=== PATIENT | male | born 1970 | race Caucasian/White ===

== ENCOUNTER 2017-05-14 14:00 | Emergency (ER) | payer OTHER ==
[2017-05-14] MEDS ORDERED: MAGNESIUM SULFATE 1 GM/2 ML VIAL ONE (14:41)
[2017-05-14] MEDS ORDERED: THIAMINE HCL 200 MG/2 ML VIAL ONE (14:41)
[2017-05-14] MEDS ORDERED: NORMAL SALINE 1,000 ML IV ONE (14:42)
[2017-05-14] MEDS ORDERED: MULTIVITAMINS 10 ML VIAL IV ONE (14:42)
[2017-05-14 14:45] LABS: ALBUMIN 4.7 g/dL (3.5-5.0); ALKALINE PHOSPHATASE 107 U/L (38-126); ALT 214 U/L (21-72); AST 269 U/L (17-59); BILIRUBIN, DIRECT 1.1 mg/dL (0.0-0.4); BILIRUBIN, TOTAL 2.1 mg/dL (0.2-1.3); BLOOD UREA NITROGEN 8 mg/dL (9-20); CALCIUM 9.1 mg/dL (8.4-10.2); CHLORIDE 103 mmol/L (98-107); EST GLOMERULAR FILTRATION RATE > 60 mL/min; GLUCOSE 112 mg/dL (70-100); LIPASE 70 U/L (23-300); MAGNESIUM 1.9 mg/dL (1.6-2.3); POTASSIUM 3.8 mmol/L (3.5-5.1); SODIUM 147 mmol/L (137-145); TOTAL PROTEIN 8.7 g/dL (6.3-8.2)
[2017-05-14 15:04] LABS: HEMATOCRIT 48.3 % (42.0-54.0); HEMOGLOBIN 16.9 g/dL (14.0-18.0); RED BLOOD COUNT 4.82 X 10^6uL (4.20-6.10); WHITE BLOOD COUNT 3.5 X 10^3uL (3.9-10.7)
[2017-05-14 15:05] LABS: EOSINOPHILS 2.5 % (0.0-6.0); LYMPHOCYTES 33.1 % (20.0-40.0); MONOCYTES 13.6 % (2.0-10.0); NEUTROPHILS 50.1 % (54.0-75.0); PLATELET COUNT 90 X 10^3uL (130-440); RED CELL DISTRIBUTION WIDTH 12.3 % (11.5-14.5)
[2017-05-14 15:06] LABS: BASOPHILS 0.7 % (0.0-2.0); EOSINOPHILS# 0.1 X 10^3uL (0.0-0.4); LYMPHOCYTES# 1.2 X 10^3uL (0.8-3.8); MONOCYTES# 0.5 X 10^3uL (0.2-1.0); NEUTROPHILS# 1.8 X 10^3uL (2.6-6.7)
[2017-05-14 15:17] LABS: ETHYL ALCOHOL 489 mg/dL (<10)
[2017-05-14] MEDS ORDERED: LORazepam 0.5 MG TABLET ONE (16:30)
[2017-05-14] MEDS ORDERED: LORazepam 1 MG TABLET ONE (22:06)
--- NOTE | 2017-05-14 22:21 | ER NURSING DOCUMENTATION ---
Nurse's Notes [facility] Name:Moise Dang Age:46 yrs Sex:Male :1970 Arrival Date:05/14/2017 Time:14:00 Bed4 Private MD: Diagnosis:Alcohol Abuse;Alcoholic Hepatitis;Alcohol Intoxication, Dependence Acute Presentation: 05/14 14:05 Presenting complaint: Patient states: On the way to [place], here for hydration. cb Transition of care: Home. Notified ED Physician of patient's arrival and CC Dr. Dao notified. 14:05 Method Of Arrival: Private Vehicle cb 14:05 Acuity: IGOR 3 cb Triage Assessment: 14:53 General: Appears in no apparent distress, well groomed, Behavior is Intoxicated. Smells cb of alcohol. Pain: Complains of pain in left arm and left leg Pain currently is 8 out of 10 on a pain scale. EENT: No deficits noted. Neuro: Level of Consciousness is awake, alert, Oriented to person, patient states that he is in [place] . Cardiovascular: Pulses are 2+ in left radial artery. Respiratory: Airway is patent Trachea midline Respiratory effort is even, unlabored, Respiratory pattern is regular, symmetrical. GI: Parent/caregiver reports the patient having anorexia. : No deficits noted. Derm: Reports Bruising on L lower leg. Musculoskeletal: Reports pain in left arm and left leg chronic. Historical: - Allergies: No known drug Allergies; - Home Meds: 1. None - PSHx: HIP SURGERY; SHOULDER SURGERY; arm injury with surgery ; - Tetanus: < 10 years. - Ebola Screening: : Patient negative for fever greater than or equal to 101.5 degrees Fahrenheit, and additional compatible Ebola Virus Disease symptoms. Patient denies exposure to infectious person. Patient denies travel to an Ebola-affected area in the 21 days before illness onset. No symptoms or risks identified at this time. . - Immunization history: Flu Vaccine None. - Social history: Smoking status: Patient states was never smoker of tobacco. Patient/guardian denies using street drugs, marijuana. Screenin:58 Infectious Disease Risk None. Abuse screen: Denies threats or abuse. Denies injuries cb from another. Nutritional screening: No deficits noted. Suicide Risk Assessment: Unable to obtain due to condition. Vital Signs: 14:07 BP 126 / 96; Pulse 82; Resp 20; Temp 98.9(TE); Pulse Ox 93% on R/A; Weight 81.65 kg; cb Height 6 ft. 3 in. (190.50 cm); Pain 8/10; 14:35 Pulse Ox 93% ; cb 21:59 BP 130 / 84; Pulse 75; Resp 18; Pulse Ox 97% ; bw2 14:07 Body Mass Index 22.50 (81.65 kg, 190.50 cm) cb ED Course: 14:02 Patient arrived in ED. ds 14:05 Raya Bolanos, JOSEPH is Primary Nurse. cb 14:07 Triage completed. cb 14:09 Willie Dao MD is Attending Physician. cd 14:15 Inserted peripheral IV: 18 gauge in left antecubital area and blood collected. Missed cb attempts: 18 gauge X 1 in left antecubital area. 14:15 Labs drawn. (by ED staff). Sent per order to lab. Oxygen O2 via patient will not keep cb oxygen on. 14:59 Valuables Remains with patient Patient has correct armband on for positive cb identification. Placed in gown. Bed in low position. Call light in reach. Side rails up X 1. Adult w/ patient. Pulse ox on. NIBP on. 18:23 Labs drawn. By Lab Staff Sent per order to lab. cb 20:30 No apparent distress. Resting quietly. bw2 21:52 Attending Physician role handed off by Willie Dao MD tl1 21:52 Edson Rao MD is Attending Physician. tl1 Administered Medications: 14:15 Drug: Banana Bag - (NS 0.9% 1000 ml, folic acid 600 mcg, Thiamine 100 mg, Multivitamin cb 10 ml, Magnesium Sulfate 1 grams); Route: IV; Rate: calculated rate; Site: left antecubital; 15:10 Follow up: IV Status: Infusion continued; IV Intake: 1000ml cb 15:11 Drug: NS 0.9% 1000 ml; Route: IV; Rate: bolus; Site: left antecubital; cb 16:16 Follow up: IV Status: Infusion continued; IV Intake: 1000ml cb 16:16 Drug: NS 0.9% 1000 ml; Route: IV; Rate: bolus; Site: left antecubital; cb 17:13 Follow up: IV Status: Completed infusion; IV Intake: 1000ml cb 16:17 Drug: Ativan 0.5 mg; Route: PO; cb 17:14 Follow up: Response: Anxiety decreased cb 21:55 CANCELLED (Duplicate Order): Ativan 2 mg PO once bw2 21:58 Drug: Ativan 2 mg; Route: PO; 2 22:03 Follow up: Response: No adverse reaction bw2 Intake: 15:10 IV: 1000ml; Total: 1000ml. cb 16:16 IV: 1000ml; Total: 2000ml. cb 17:13 IV: 1000ml; Total: 3000ml. cb Outcome: 21:59 Discharged to [place] [id number] 21:59 Condition: good 21:59 Report given to [facility] 21:59 Discharge Assessment: Patient awake, alert and oriented x 3. No cognitive and/or functional deficits noted. Patient verbalized understanding of disposition instructions. 22:17 Discharge ordered by . tl1 22:20 Discharge instructions given to patient, ready mix truck driver, Instructed on discharge [facility] instructions, follow up and referral plans. Demonstrated understanding of instructions. 22:20 Patient left the ED. 2 Signatures: Raya Bolanos RN RN cb ot, Emmie, Reg Reg Willie Nails MD MD cd Leigh, Tom, MD MD tl1 Katherine Palmer bw2
--- NOTE | 2017-05-14 22:21 | ER PHYSICIAN DOCUMENTATION ---
Physician Documentation [facility] Name:Moise Dang Age:46 yrs Sex:Male :1970 Arrival Date:05/14/2017 Time:14:00 Bed4 Private MD: Edson Allen Disposition: 05/14 22:15 Chart complete. tl1 Disposition: 05/14/17 22:17 Discharged to [facility]. Impression: Alcohol Abuse, Alcoholic Hepatitis, Alcohol Intoxication, Dependence Acute. - Condition is Good. - Discharge Instructions: ALCOHOL INTOXICATION. - Medical Reconciliation form form. - Follow up: Private Physician; When: 4- 6 days; Reason: Recheck today's complaints, Continuance of care. - Problem is an ongoing problem. - Symptoms have improved. - Notes: GO TO [place] NOW FOR INTAKE AND ALCOHOL DETOX AND REHAB. HPI: 19:20 This 46 yrs old Male presents to ER via Private Vehicle with complaints of tl1 ETOH Abuse. 19:20 The patient presents to the emergency department with a history of substance abuse, tl1 Type: vodka, This is a very pleasant 46 y.o man who by report, showed up at [facility] for detox, but was felt to be too intoxicated for intake at that time and was referred here for medical evaluation. He arrived at [address]. Please [address] Dao's note documenting his initial evaluation. His care was signed over to me at 1900, pending decrease of his alcohol level below 300, at which he will be appropriate for intake at [facility]. Labs are notable for leukopenia, thrombocytopenia, and elevated transaminases, c/w alcoholic hepatitis.. Historical: - Allergies: No known drug Allergies; - Home Meds: 1. None - PSHx: HIP SURGERY; SHOULDER SURGERY; arm injury with surgery ; - Tetanus: < 10 years. - Ebola Screening: : Patient negative for fever greater than or equal to 101.5 degrees Fahrenheit, and additional compatible Ebola Virus Disease symptoms. Patient denies exposure to infectious person. Patient denies travel to an Ebola-affected area in the 21 days before illness onset. No symptoms or risks identified at this time. . - Immunization history: Flu Vaccine None. - Social history: Smoking status: Patient states was never smoker of tobacco. Patient/guardian denies using street drugs, marijuana. ROS: 22:09 Psych: Positive for alcohol dependence, Negative for auditory hallucinations, visual tl1 hallucinations, homicidal ideation, suicidal ideation. 22:09 All other systems are negative. Exam: 22:09 Constitutional: This is a well developed, well nourished patient who is awake, alert, tl1 and in no acute distress. 22:09 Head/face: Exam is negative for acute changes. 22:09 Neck: ROM/movement: is normal, is supple. 22:09 Cardiovascular: Rate: normal. 22:09 Respiratory: Respirations: normal. 22:09 Psych: Behavior/mood is pleasant, cooperative, Affect is calm, Oriented to person, place, time, Patient has no thoughts/intents to harm self or others. Judgement / Insight is normal. Memory is normal. Delusions/hallucinations are not present. Vital Signs: 14:07 BP 126 / 96; Pulse 82; Resp 20; Temp 98.9(TE); Pulse Ox 93% on R/A; Weight 81.65 kg; cb Height 6 ft. 3 in. (190.50 cm); Pain 8/10; 14:35 Pulse Ox 93% ; cb 21:59 BP 130 / 84; Pulse 75; Resp 18; Pulse Ox 97% ; bw2 14:07 Body Mass Index 22.50 (81.65 kg, 190.50 cm) cb MDM: 14:09 Patient medically screened. cd 22:10 Data reviewed: vital signs, nurses notes, lab test result(s), and as a result, I will tl1 discharge patient. Counseling: I had a detailed discussion with the patient and/or guardian regarding: the historical points, exam findings, and any diagnostic results supporting the discharge/admit diagnosis, lab results, the need for outpatient follow up, to return to the emergency department if symptoms worsen or persist or if there are any questions or concerns that arise at home. Response to treatment: the patient's symptoms have markedly improved after treatment, and as a result, I will discharge patient, D/C TO [place]. ED course: He rested comfortably and was given a banana bag and ativan. Just prior to d/c he had an ETTOH level of 495 and he was starting to withdraw, with some anxiety and tremulousness. He received 2 mg of PO Ativan and was feeling better at the time of d/c. I spoke with Mary, intake nurse at [facility] at 2200 and she said they would be sending someone to [facility] Dang shortly.. 05/14 15:06 Order name: CBC AUTO DIF, MDIF/RMOR IF IND; Complete Time: 15:37 EDMS 05/14 15:37 Interpretation: Normal Except: WHITE BLOOD COUNT 3.5; PLATELET COUNT 90; Neutropenia, cd Thrombocytopenia. 05/14 15:17 Order name: BASIC METABOLIC PANEL; Complete Time: 15:37 EDMS 05/14 15:37 Interpretation: Normal. 05/14 15:17 Order name: MAGNESIUM; Complete Time: 15:37 EDMS 05/14 15:37 Interpretation: Normal. 05/14 15:17 Order name: HEPATIC PANEL; Complete Time: 15:37 EDMS 05/14 15:37 Interpretation: Abnormal: ALT 214; AST 269; BILIRUBIN, TOTAL 2.1; BILIRUBIN, DIRECT 1.1. 05/14 15:17 Order name: LIPASE; Complete Time: 15:37 EDMS 05/14 15:37 Interpretation: Normal. 05/14 15:17 Order name: ETHYL ALCOHOL; Complete Time: 15:37 EDMS 05/14 15:37 Interpretation: Abnormal: ETHYL ALCOHOL 489. cd 05/14 18:57 Order name: ETHYL ALCOHOL; Complete Time: 21:59 EDMS 05/14 21:59 Interpretation: Abnormal: ETHYL ALCOHOL 362. tl1 05/14 21:37 Order name: ETHYL ALCOHOL; Complete Time: 21:59 EDMS 05/14 21:59 Interpretation: Abnormal: ETHYL ALCOHOL 295. tl1 Dispensed Medications: 14:15 Drug: Banana Bag - (NS 0.9% 1000 ml, folic acid 600 mcg, Thiamine 100 mg, Multivitamin cb 10 ml, Magnesium Sulfate 1 grams); Route: IV; Rate: calculated rate; Site: left antecubital; 15:10 Follow up: IV Status: Infusion continued; IV Intake: 1000ml cb 15:11 Drug: NS 0.9% 1000 ml; Route: IV; Rate: bolus; Site: left antecubital; cb 16:16 Follow up: IV Status: Infusion continued; IV Intake: 1000ml cb 16:16 Drug: NS 0.9% 1000 ml; Route: IV; Rate: bolus; Site: left antecubital; cb 17:13 Follow up: IV Status: Completed infusion; IV Intake: 1000ml cb 16:17 Drug: Ativan 0.5 mg; Route: PO; cb 17:14 Follow up: Response: Anxiety decreased cb 21:55 CANCELLED (Duplicate Order): Ativan 2 mg PO once bw2 21:58 Drug: Ativan 2 mg; Route: PO; bw2 22:03 Follow up: Response: No adverse reaction bw2 Signatures: Raya Bolanos, JOSEPH RN Willie Cowart MD MD cd Leigh, Tom, MD MD [address] bw2
== END 2017-05-14 22:21 ==
LOC: ER 14:00 → EEVIPCON 14:00 → ER 22:21
DX: K70.10 Alcoholic hepatitis without ascites (principal); F10.229 Alcohol dependence with intoxication, unspecified
CPT/HCPCS: 36415; 80048; 80076; 80320; 83690; 83735; 85025; 96361; 96365; 99284; J3475; J7030